=== PATIENT | female | born 1990 ===

== ENCOUNTER → 2021-11-16 14:52 | Outpatient (CLI) | payer OTHER, SELFPAY ==
[2021-11-16 15:16] LABS: COVID19 -Nasal RAPID Negative (Negative)
== END ==
PROVIDERS: PCP Obstetrics & Gynecology; Visit Provider Nurse Practitioner Family
DX: Z20.822 Contact with and (suspected) exposure to COVID-19 (principal)
CPT/HCPCS: 87635

== ENCOUNTER 2021-11-16 15:18 | Emergency (ER) | payer OTHER, SELFPAY ==
[2021-11-16 15:20] VITALS: BP 132/72; PULSE 149; RESP 18; TEMP 36.4; O2SAT 99; BMI 25.2
--- NOTE | 2021-11-16 15:37 | DI.RAD.S_ITS ---
PROCEDURE: XR CHEST 1V INDICATIONS: tachycardia TECHNIQUE: One view of the chest was acquired. COMPARISON: None. FINDINGS: Surgical changes and devices: None. Lungs and pleura: Lungs are clear. No pleural effusions or pneumothorax. Mediastinum: Mediastinal contours appear normal. Heart size is normal. Bones and chest wall: No suspicious bony lesions. Overlying soft tissues appear unremarkable. IMPRESSION: 1. No acute cardiopulmonary disease. Dictated by: Matthew Shelton M.D. on 11/16/2021 at 16:36 Approved by: Matthew Shelton M.D. on 11/16/2021 at 16:37
[2021-11-16 16:26] LABS: Add Manual Diff / Slide Review NO; Basophils Absolute Auto 0 /uL (0-100); Basophils Percent Auto 0.6 % (0-2); Eosinophils Absolute Auto 0 /uL (0-450); Eosinophils Percent Auto 0.3 % (2-4); Hematocrit 43.3 % (36-46); Lymphocytes Absolute Auto 1600 /uL (1100-4500); Lymphocytes Percent Auto 24.7 % (25-40); Mean Corpuscular HGB Conc 34.6 % (30-36); Mean Corpuscular Hemoglobin 31.7 PG (26-34); Mean Corpuscular Volume 91.6 fL (80-100); Monocytes Absolute Auto 300 /uL (0-900); Neutrophils Absolute Auto 4600 /uL (1500-7000); Neutrophils Percent Auto 69.4 % (50-75); Platelet Count 232 X10^3/uL (150-400); Red Blood Cell Count 4.73 X10^6/uL (4.0-5.2); Red Cell Distribution Width 11.7 % (11.6-14.8); White Blood Cell Count 6.6 X10^3/uL (4.5-11.0)
[2021-11-16 16:39] VITALS: PULSE 98; RESP 17; O2SAT 96
[2021-11-16 16:40] VITALS: BP 119/73; PULSE 96; RESP 16; O2SAT 98
[2021-11-16 16:42] LABS: Alanine Aminotransferase 13 IU/L (<35); Albumin 4.8 g/dL (3.5-5.0); Albumin Globulin Ratio 1.4 (1.0-2.8); Alkaline Phosphatase 44 U/L (38-126); Aspartate Aminotransferase 23 IU/L (14-36); BUN Creatinine Ratio 22.1 (6-22); Bilirubin Total 0.6 mg/dL (0.2-1.3); Blood Urea Nitrogen 17 mg/dL (7-17); Calcium 9.9 mg/dL (8.4-10.2); Carbon Dioxide 23 mmol/L (22-32); Chloride 107 mmol/L (98-107); Estimated Glomerular Filt Rate > 60.0 mL/min (>60); Globulin 3.4 g/dL (1.7-4.1); Glucose 82 mg/dL (70-100); HEMOLYSIS < 15 (0-50); Potassium 3.9 mmol/L (3.4-5.1); Sodium 139 mmol/L (137-145); Total Protein 8.2 g/dL (6.3-8.2)
[2021-11-16 16:43] LABS: Creatine Kinase 48 U/L (30-135)
[2021-11-16 16:54] LABS: Troponin I < 0.012 ng/mL (0.01-0.034)
[2021-11-16 16:58] LABS: D Dimer < 200 ng/mL (<230)
[2021-11-16 17:00] VITALS: BP 112/62; PULSE 90; RESP 26; O2SAT 100
[2021-11-16] MEDS: SODIUM CHLORIDE 0.9% 1,000 ML 1000 ML IV (17:00)
--- NOTE | 2021-11-16 17:00 | ED_ITS ---
HPI - Arrhythmia/Palpitations General Chief Complaint: Arrhythmia/Palpitations Stated Complaint: sent by [facility] for fast heartrate Time Seen by Provider: 11/16/21 15:36 Source: patient Mode of arrival: Ambulatory History of Present Illness HPI narrative: 31-year-old female daily smoker presents from the walk-in clinic for evaluation on elevated heart rate. Patient states that she has had runny nose and nasal congestion for the past few days and went to the walk-in clinic for evaluation of a possible sinus infection. She has had no fever or chills. She has had clear nasal drainage but denies any discolored drainage. She denies any chest pain or shortness of breath. She was feeling a bit fatigued and lightheaded with palpitations when she was sent over. She states that on the big picture she has been feeling great lately and has been under significant stress. She states that she had a panic attack over the weekend but denies any significant trigger. Related Data Allergies Allergy/AdvReac Type Severity Reaction Status Date / Time No Known Drug Allergies Allergy Unverified 11/16/21 14:51 Review of Systems Review of Systems Narrative: GENERAL: See HPI. HEENT: Denies sinus pain, ear pain, sore throat, difficulty swallowing, dizziness. RESPIRATORY: Denies dyspnea, cough, wheezing, hemoptysis, sputum. CARDIOVASCULAR: See HP GASTROINTESTINAL: Denies nausea, vomiting, abdominal pain, diarrhea, constipation, melena. : Denies dysuria, frequency, incontinence, hematuria, urinary retention. MUSCULOSKELETAL: denies weakness, joint pain, or bony pain SKIN: Denies rash, skin lesions, or other NEUROLOGIC: Denies weakness, headache, numbness, change in speech, confusion, seizures, incoordination. PSYCHIATRIC: No concerning psychosocial issues. 12 point review of systems is negative except for those stated above Patient History Social History Smoking Status: Current every day smoker Smoking Status: Current every day smoker Exam Narrative Exam Narrative: GENERAL: [31 year old patient appears stated age. Well-developed patient, in mild distress. HEAD: Atraumatic. Normocephalic. EYES: Pupils equal round and reactive. Extraocular motions intact. No scleral icterus. No injection or drainage. ENT: Nose without bleeding, purulent drainage. Throat without erythema, tonsillar hypertrophy or exudate. Airway patent. NECK: Trachea midline. Non tender CARDIOVASCULAR: Tachycardic irregular rhythm without murmurs, gallops, or rubs. RESPIRATORY: Clear to auscultation. Breath sounds equal bilaterally. No wheezes, rales, or rhonchi. GASTROINTESTINAL: Abdomen soft, non-tender, nondistended. EXTREMITIES: No edema or joint tenderness. BACK: Nontender without deformity or crepitance. No flank tenderness. NEURO: AOx3. SKIN: No rash or erythema of visible areas Initial Vital Signs Initial Vital Signs: Vital Signs Temperature 97.6 F 11/16/21 15:20 Pulse Rate 149 H 11/16/21 15:20 Respiratory Rate 18 11/16/21 15:20 Blood Pressure 132/72 11/16/21 15:20 Pulse Oximetry 99 11/16/21 15:20 Course Orders Ordered: ED Orders 11/16/21 15:27 EKG-12 Lead Stat 11/16/21 15:37 XR chest 1V Stat 11/16/21 16:15 Complete Blood Count AUTO DIFF Stat Comprehensive Metabolic Panel Stat D Dimer Stat Magnesium Stat Thyroid Stimulating Hormone Stat Troponin & CK Cardiac Panel Stat Discontinued Medications Sodium Chloride (Normal Saline 0.9%) 1,000 mls @ 1,000 mls/hr IV BOLUS ONE Stop: 11/16/21 16:35 Last Admin: 11/16/21 17:00 Dose: 1,000 mls/hr Documented by: JOSH Reevaluation(s) Reevaluation #1: Patient has significant improvement in symptoms after above-stated therapies. Vital Signs Vital signs: Vital Signs - 8 hr 11/16/21 15:20 11/16/21 16:39 11/16/21 16:40 Temperature 97.6 F Pulse Rate 149 H 98 H 96 H Respiratory Rate 18 17 16 Blood Pressure 132/72 119/73 Pulse Oximetry 99 96 98 11/16/21 17:00 11/16/21 17:30 Temperature Pulse Rate 90 86 Respiratory Rate 26 H 27 H Blood Pressure 112/62 Pulse Oximetry 100 99 MDM - Arrhythmia/Palpitations Lab Data Result diagrams: 11/16/21 16:15 11/16/21 16:15 Labs: Lab Results 11/16/21 11/16/21 11/16/21 Range/Units 16:15 16:15 16:15 WBC 6.6 (4.5-11.0) X10^3/uL RBC 4.73 (4.0-5.2) X10^6/uL Hgb 15.0 (12.0-16.0) g/dL Hct 43.3 (36-46) % MCV 91.6 (80-100) fL MCH 31.7 (26-34) PG MCHC 34.6 (30-36) % RDW 11.7 (11.6-14.8) % Plt Count 232 (150-400) X10^3/uL Neut % (Auto) 69.4 (50-75) % Lymph % (Auto) 24.7 L (25-40) % Nelson % (Auto) 5.0 (3-14) % Eos % (Auto) 0.3 L (2-4) % Baso % (Auto) 0.6 (0-2) % Neut # (Auto) 4600 (2874-7567) /uL Lymph # (Auto) 1600 (7348-7896) /uL Nelson # (Auto) 300 (0-900) /uL Eos # (Auto) 0 (0-450) /uL Baso # (Auto) 0 (0-100) /uL D-Dimer < 200 (<230) ng/mL Sodium 139 (137-145) mmol/L Potassium 3.9 (3.4-5.1) mmol/L Chloride 107 (98-107) mmol/L Carbon Dioxide 23 (22-32) mmol/L BUN 17 (7-17) mg/dL Creatinine 0.77 (0.52-1.04) mg/dL Estimated GFR > 60.0 (>60) mL/min BUN/Creatinine Ratio 22.1 H (6-22) Glucose 82 (70-100) mg/dL Calcium 9.9 (8.4-10.2) mg/dL Magnesium (1.6-2.3) mg/dL Total Bilirubin 0.6 (0.2-1.3) mg/dL AST 23 (14-36) IU/L ALT 13 (<35) IU/L Alkaline Phosphatase 44 (38-126) U/L Total Creatine Kinase (30-135) U/L CK-MB (CK-2) CK-MB (CK-2) Rel Index Troponin I (0.01-0.034) ng/mL Total Protein 8.2 (6.3-8.2) g/dL Albumin 4.8 (3.5-5.0) g/dL Globulin 3.4 (1.7-4.1) g/dL Albumin/Globulin Ratio 1.4 (1.0-2.8) TSH (0.47-4.68) uIU/mL 11/16/21 11/16/21 Range/Units 16:15 16:15 WBC (4.5-11.0) X10^3/uL RBC (4.0-5.2) X10^6/uL Hgb (12.0-16.0) g/dL Hct (36-46) % MCV (80-100) fL MCH (26-34) PG MCHC (30-36) % RDW (11.6-14.8) % Plt Count (150-400) X10^3/uL Neut % (Auto) (50-75) % Lymph % (Auto) (25-40) % Nelson % (Auto) (3-14) % Eos % (Auto) (2-4) % Baso % (Auto) (0-2) % Neut # (Auto) (8486-5299) /uL Lymph # (Auto) (2305-2333) /uL Nelson # (Auto) (0-900) /uL Eos # (Auto) (0-450) /uL Baso # (Auto) (0-100) /uL D-Dimer (<230) ng/mL Sodium (137-145) mmol/L Potassium (3.4-5.1) mmol/L Chloride (98-107) mmol/L Carbon Dioxide (22-32) mmol/L BUN (7-17) mg/dL Creatinine (0.52-1.04) mg/dL Estimated GFR (>60) mL/min BUN/Creatinine Ratio (6-22) Glucose (70-100) mg/dL Calcium (8.4-10.2) mg/dL Magnesium 2.0 (1.6-2.3) mg/dL Total Bilirubin (0.2-1.3) mg/dL AST (14-36) IU/L ALT (<35) IU/L Alkaline Phosphatase (38-126) U/L Total Creatine Kinase 48 (30-135) U/L CK-MB (CK-2) TNP CK-MB (CK-2) Rel Index TNP Troponin I < 0.012 (0.01-0.034) ng/mL Total Protein (6.3-8.2) g/dL Albumin (3.5-5.0) g/dL Globulin (1.7-4.1) g/dL Albumin/Globulin Ratio (1.0-2.8) TSH 1.49 (0.47-4.68) uIU/mL MDM Narrative Medical decision making narrative: Patient with reassuring history and physical exam. Labs are very reassuring there is no sign of anemia, kidney failure or suggestion of blood clot. She responds well to fluids and likely became dehydrated with her panic attack, headache, decreased appetite. Her labs have improved, return precautions given and questions answered to her apparent satisfaction Discharge Plan Departure Patient Disposition: Home Clinical Impression: Tachycardia, Acute dehydration Instructions: DI for Tachycardia Activity Restrictions/Additional Instructions: *You have been diagnosed with [elevated heart rate, likely due to dehydration. As we discussed, though you may have a mild sinus infection there is no indication that it would require antibiotics *What to do: *Please consider [id number] sinus medications that include an antihistamine to dry secretions and a decongestant to improve inflammation *Please follow up with your primary care provider in 2-3 days, call for an appointment. Let them know you were seen in the Emergency Department and that we ask that you be seen in follow up. We will electronically transmit a record of today's note if your PCP is in our system *If you do not have a primary care provider please contact the [facility] Resource line at [phone]. They will ask some questions about your medical history and help get you set up with a doctor in the community. *Return to Emergency Department if you should have any new, worsening or concerning symptoms, such as [fever greater than 101 F, shaking chills, worsening pain, persistent vomiting or other bothersome symptoms] Referrals: Yin Barrow MD [Primary Care Provider] -
[2021-11-16 17:24] LABS: Thyroid Stimulating Hormone 1.49 uIU/mL (0.47-4.68)
[2021-11-16 17:30] VITALS: PULSE 86; RESP 27; O2SAT 99
== END 2021-11-16 17:47 | disposition home or self-care (01) ==
PROVIDERS: Emergency Provider Emergency Medicine; PCP Obstetrics & Gynecology
DX: R00.0 Tachycardia, unspecified (principal); E86.0 Dehydration; F17.200 Nicotine dependence, unspecified, uncomplicated; Z20.822 Contact with and (suspected) exposure to COVID-19
CPT/HCPCS: 36415; 71045; 80053; 82550; 83735; 84443; 84484; 85025; 85379; 87635; 93005; 93010; 96360; 99284